=== PATIENT | male | born 1970 | race Caucasian/White ===

== ENCOUNTER 2017-08-03 23:33 | Outpatient (CLI) | payer SELFPAY | END 2017-08-03 23:34 | disposition EMS.NT | LOC: EMS 23:33 | PROVIDERS: ATTEND Surgery | DX: R06.02 Shortness of breath (principal); V40.5XXA Car driver injured in collision with pedestrian or animal in traffic accident, initial encounter; Y92.413 State road as the place of occurrence of the external cause ==

== ENCOUNTER 2018-03-16 20:59 | Outpatient (CLI) | payer SELFPAY | END 2018-03-16 21:00 | disposition EMS.NT | LOC: EMS 20:59 | PROVIDERS: ATTEND Surgery | DX: R06.02 Shortness of breath (principal) ==

== ENCOUNTER 2019-06-09 19:15 | Outpatient (CLI) | payer SELFPAY | END 2019-06-09 19:16 | disposition E | LOC: EMS 19:15 | PROVIDERS: ATTEND Surgery | DX: I46.9 Cardiac arrest, cause unspecified (principal) | CPT/HCPCS: A0425; A0429 ==